=== PATIENT | female | born 1950 | race Caucasian/White ===

== ENCOUNTER 2023-12-04 13:04 | Emergency (ER) | payer MEDICARE, OTHER, SELFPAY ==
[2023-12-04 13:09] VITALS: BP 129/94
--- NOTE | 2023-12-04 13:40 | ED.GENMED ---
History of Present Illness
<Chelly Villalpando PA-C - Last Filed: 12/04/23 15:56>
General
Chief Complaint: Fall
Source: patient
Exam Limitations: none
Time Seen by Provider: 12/04/23 13:40
Nursing documentation reviewed up to this point in time: agreed with
Travel History
Have you had any contact with someone who has COVID-19?: No
Do you have any symptoms of coronavirus? Fever > 100 degrees, chills, cough, shortness of breath, sore throat, loss of taste or smell, muscle aches, or headache?: No
History of Present Illness
History of Present Illness:
73-year-old female with past medical history of hypertension presenting emergency department today with left buttocks pain following a fall. Patient states that this morning, she was walking in her house and slippers on a wood floor and slipped and
fell on her buttock. Patient states that she did not hit her head. Patient does not take any blood thinners. Patient denies neck pain, headache, dizziness, lightheadedness. Patient denies any lower extremity or upper extremity pain. Denies any
back pain. Denies any abdominal pain. Patient states that she is able to ambulate, however she states that is a bit difficult because of the pain. She is currently living at home alone because her is on a trip to [place] and she is
concerned about a fall occurring again.
Past History
<Chelly Villalpando PA-C - Last Filed: 12/04/23 15:56>
Past History
ED Past Medical History: HTN and Hypercholesterolemia
ED Past Surgical History: Orthopedic (R ankle screws and plate)
Social History
Tobacco: Non-smoker
Alcohol: Occasional
Personal:
Living: with family
Review of Systems
<Chelly Villalpando PA-C - Last Filed: 12/04/23 15:56>
Review of Systems
All Other Systems: ROS reviewed and negative except as documented in HPI and ROS
Phy Exam
<Chelly Villalpando PA-C - Last Filed: 12/04/23 15:56>
Physical Exam
Physical Exam:
Vitals: Vital signs are stable
General: Patient is well appearing, no acute distress
Skin: Warm dry, no rashes or lesions. No areas of ecchymosis.
Cardiac: Regular rate and rhythm, no murmurs. No tenderness tenderness to palpation of the posterior external chest wall.
Peripheral vascular: 2+ DP pulses bilaterally. No lower extremity swelling.
Pulm: Normal respiratory effort
Abdomen: No abdominal tenderness
Musculoskeletal: Patient has tenderness to palpation of the left buttocks, mild tenderness palpation of the left hip. Patient has no pain with full range of motion of the hip. Patient has no tenderness palpation of the coccyx. Sensation intact.
Neuro: CN II-XII intact. No focal neurologic deficits.
Course
<Chelly Villalpando PA-C - Last Filed: 12/04/23 15:56>
Orders/Labs/Results
Orders:
Orders
12/04/23 14:10
CR Hip - LT w/wo Pel 2-3 Vw* Urgent
Comment:
Reason For Exam: left hip pain following fall
Include a pelvis x-ray?: Yes
CR Sacrum/coccyx Min 2 View Urgent
Comment:
Reason For Exam: left buttock pain
Vital Signs
Initial and Last Documented VS:
Initial Vital Signs
Temp Pulse Resp BP Pulse Ox
97.7 F 78 18 129/94 98
12/04/23 13:09 12/04/23 13:09 12/04/23 13:09 12/04/23 13:09 12/04/23 13:09
Last Documented Vital Signs
Temp Pulse Resp BP Pulse Ox
97.7 F 78 18 129/94 98
12/04/23 13:09 12/04/23 13:09 12/04/23 13:09 12/04/23 13:09 12/04/23 13:09
<Wayne Ward DO - Last Filed: 12/04/23 14:48>
Orders/Labs/Results
Orders:
Orders
12/04/23 14:10
CR Hip - LT w/wo Pel 2-3 Vw* Urgent
Comment:
Reason For Exam: left hip pain following fall
Include a pelvis x-ray?: Yes
CR Sacrum/coccyx Min 2 View Urgent
Comment:
Reason For Exam: left buttock pain
Vital Signs
Initial and Last Documented VS:
Initial Vital Signs
Temp Pulse Resp BP Pulse Ox
97.7 F 78 18 129/94 98
12/04/23 13:09 12/04/23 13:09 12/04/23 13:09 12/04/23 13:09 12/04/23 13:09
Last Documented Vital Signs
Temp Pulse Resp BP Pulse Ox
97.7 F 78 18 129/94 98
12/04/23 13:09 12/04/23 13:09 12/04/23 13:09 12/04/23 13:09 12/04/23 13:09
<Chelly Villalpando PA-C - Last Filed: 12/04/23 15:56>
MDM/Problems Addressed
Differential Diagnosis Includes:
Differentials include sacral fracture, femoral fracture, coccyx fracture, pelvic fracture, musculoskeletal sprain/strain, soft tissue swelling
MDM/Problems Addressed:
Left buttocks pain
Chronic conditions affecting care: HTN
Acute Exacerbation and/or Progression of Chronic Illness: HTN
<CELESTINA Cortez Last Filed: 12/04/23 15:56>
*Radiology
Radiology exam reviewed: preliminary read by ED provider (No acute fracture or dislocation)
*Pulse Oximetry
Patient hypoxic: no
*Critical Care Note
Total Time (30-74mins, 75-104mins- exclusive of procedures): Not Applicable
Data Reviewed
Review of Other/Old Records Reveals: Records (Reviewed ER physician documentation from 10/30/2013) and Discharge Summary (Reviewed discharge summary from 11/02/2013)
Source: patient, records and family
Prescriptions/Medications Considered But Not Given:
Considered ibuprofen or Tylenol for pain however patient states that she is comfortable at this time.
<Chelly Villalpando PA-C - Last Filed: 12/04/23 15:56>
Patient Management
Escalation/DeEscalation of care consider admission/obs:
73-year-old female presenting emergency department today with left buttocks pain following slipping and falling on her buttocks. Patient states that she did not hit her head. Patient does not take any blood thinners. Here in the emergency
department, her x-rays reveal no evidence for acute pelvic or proximal femoral fracture. No evidence for sacrum or coccygeal fracture. Patient has had a lot of pain with walking and she is concerned she will fall again. I discussed with patient
importance of avoiding slippery socks or slippers on hard surfaces and discussed other follow-up precautions. Because is currently away, patient states that she feels more comfortable going home with a walker to use. We have ordered a
walker for patient. Patient stable for discharge.
ED Attending Note
<Chelly Villalpando PA-C - Last Filed: 12/04/23 15:56>
-
Portions of this chart may have been created with voice recognition software.� Occasional wrong word or��sound alike� substitutions may have occurred due to the inherent limitations of voice recognition software.
<Wayne Ward DO - Last Filed: 12/04/23 14:48>
ED Attending Note
Patient seen and examined by attending physician: Yes
I performed the substantive portion of visit, reviewed & personally made and approve the management plan that is documented in note by myself or BRENNA.: Yes
ED Attending Note:
Seen with PA examined independently slip and fall struck her left buttock cheek on the ground full range of motion of the hips, x-rays noted no obvious fracture
Discharge Plan
Departure
Patient Disposition: Home (Routine Discharge)
Date of Disposition: 12/04/23
Time of Disposition: 15:33
Patient with high blood pressure during this ER visit?: Yes
Condition: Good
Discharge Problem:
Fall
Instructions: Preventing falls in adults, BLOOD PRESSURE
Prescriptions:
No Action
triamterene-hydrochlorothiazid 37.5 MG/25 MG capsule
1 cap PO DAILY
Calcium With D
1,200 mg PO DAILY
Vitamin B Complex-100
1 tab PO DAILY
oxycodone 5 MG tablet
5 mg PO Q4HPRN PRN (Reason: MODERATE PAIN) Qty: 0 0RF
aspirin 325 MG tablet,delayed release (DR/EC)
325 mg PO DAILY Qty: 30 0RF
verapamil 240 MG tablet extended release
240 mg PO QPM
fosinopril 10 MG tablet
5 mg PO DAILY
sulfamethoxazole-trimethoprim 1 TABLET tablet
1 tab PO BID Qty: 10 0RF
Referrals:
Sameera Willson CRNP [Family Provider] -
Activity Restrictions/Additional Instructions:
Your x-rays today were negative for any acute fracture or dislocation.
As discussed, you can use ibuprofen and acetaminophen to help with your pain. You can also use ice and/or heat as needed.
Please follow-up with your primary care provider.
Please return to emergency department should you experience acute worsening of your symptoms, fevers or chills, chest pain or shortness of breath, dizziness, lightheadedness, or other concerning signs or symptoms
Interventions
Interventions:
*General Assessment Last Done: 12/04/23 13:09
*ED COVID-19 Vaccine History Last Done: 12/04/23 13:09
ED-Musculoskeletal Assessment Last Done: 12/04/23 13:31
ED- Neurological Assessment Last Done: 12/04/23 13:31
ED-Skin Assessment Last Done: 12/04/23 13:31
Discharge Date and Time
Print Language: MALTESE
== END 2023-12-04 16:09 | disposition home or self-care (01) ==
LOC: EMR 13:04
PROVIDERS: EMERGENCY PHYSICIAN Emergency Medicine; FAMILY PHYSICIAN Nurse Practitioner
DX: Z04.89 Encounter for examination and observation for other specified reasons (principal); Y92.009 Unspecified place in unspecified non-institutional (private) residence as the place of occurrence of the external cause; Y93.01 Activity, walking, marching and hiking; Z60.2 Problems related to living alone; I10 Essential (primary) hypertension; E78.00 Pure hypercholesterolemia, unspecified
CPT/HCPCS: 99283; 72220; 73502

== ENCOUNTER → 2023-12-30 15:45 | Outpatient (REF) | payer MEDICARE, OTHER, SELFPAY | LOC: PAVMRI 15:45 | PROVIDERS: ATTENDING PHYSICIAN Nurse Practitioner | DX: M54.41 Lumbago with sciatica, right side (principal); M54.42 Lumbago with sciatica, left side; M53.3 Sacrococcygeal disorders, not elsewhere classified | CPT/HCPCS: 72148 ==

== ENCOUNTER → 2024-01-12 12:16 | Outpatient (REF) | payer MEDICARE, OTHER, SELFPAY | LOC: MRI 3T 12:16 | PROVIDERS: ATTENDING PHYSICIAN Internal Medicine Gastroenterology; FAMILY PHYSICIAN Nurse Practitioner; REFERRING PHYSICIAN Internal Medicine Cardiovascular Disease | DX: K86.2 Cyst of pancreas (principal) | CPT/HCPCS: 74183 ==

== ENCOUNTER 2024-01-20 06:17 | Day surgery (SDC) | payer MEDICARE, OTHER, SELFPAY ==
[2024-01-20 12:35] VITALS: BMI 21.1
[2024-01-20 12:45] VITALS: BP 165/86
[2024-01-20 13:12] VITALS: BMI 21.1
[2024-01-20 16:21] VITALS: BP 155/83
[2024-01-20 16:30] VITALS: BP 125/110
[2024-01-20 16:45] VITALS: BP 145/78
== END 2024-01-20 17:00 | disposition home or self-care (01) ==
LOC: GI 06:17
PROVIDERS: ATTENDING PHYSICIAN Internal Medicine Gastroenterology; FAMILY PHYSICIAN Nurse Practitioner
DX: K86.2 Cyst of pancreas (principal); D13.6 Benign neoplasm of pancreas
CPT/HCPCS: 43238; 88173

== ENCOUNTER → 2024-01-31 12:40 | Outpatient (REF) | payer MEDICARE, OTHER, SELFPAY | LOC: HWWDC 12:40 | PROVIDERS: ATTENDING PHYSICIAN Nurse Practitioner | DX: Z12.31 Encounter for screening mammogram for malignant neoplasm of breast (principal); E04.2 Nontoxic multinodular goiter | CPT/HCPCS: 76536; 77063; 77067 ==

== ENCOUNTER → 2024-05-25 14:34 | Outpatient (REF) | payer MEDICARE, OTHER, SELFPAY | LOC: HWRAD 14:34 | PROVIDERS: ATTENDING PHYSICIAN Nurse Practitioner | DX: R93.89 Abnormal findings on diagnostic imaging of other specified body structures (principal) | CPT/HCPCS: 71046 ==

== ENCOUNTER → 2025-02-20 08:21 | Outpatient (REF) | payer MEDICARE, OTHER, SELFPAY | LOC: HWWDC 08:21 | DX: E04.2 Nontoxic multinodular goiter (principal); N83.209 Unspecified ovarian cyst, unspecified side; Z12.31 Encounter for screening mammogram for malignant neoplasm of breast; M81.0 Age-related osteoporosis without current pathological fracture | CPT/HCPCS: 76536; 76830; 76856; 77063; 77067; 77080 ==

== ENCOUNTER 2025-03-26 05:52 | Inpatient (IN) | payer MEDICARE, OTHER, SELFPAY ==
--- NOTE | 2025-03-01 14:31 | CM ---
CM reviewed medical records. CM spoke with patient via live telephone. Patient confirmed demographics. Patient lives independently with . Patient has a first floor set up. Patient has had a remote history of VN, but is currently not on
service. Patient does not have a history of SNF. Patient has a walker.
Patient is active with her PCP. Patient has medication coverage.
Patient has an appointment set up for her outpatient PT at [facility].
CM encouraged patient to read her education pack from [facility].
PLAN: BO, home, outpatient PT.
[2025-03-06 11:51] LABS: Hematocrit 39.5 % (37.0-47.0); Hemoglobin 13.5 g/dL (12.0-16.0); Mean Corp Hgb Conc. 34.2 g/dL (33.0-37.0); Mean Corpuscular Volume 95.4 fL (81.0-99.0); Platelet Count 308 10^3/uL (130-400); Red Cell Dist. Width 14.3 % (11.5-14.5)
[2025-03-06 12:40] LABS: ALT (SGPT) 18 U/L (0-35); AST (SGOT) 25 U/L (14-36); Albumin 4.7 g/dl (3.5-5.0); Alkaline Phosphatase 72 U/L (38-126); Blood Urea Nitrogen 16 mg/dl (7-17); Calcium 9.9 mg/dl (8.4-10.2); Carbon Dioxide 29 mmol/L (22-30); Chloride 98 mmol/L (98-107); Glucose 111 mg/dl (70-99); Potassium 4.1 mmol/L (3.5-5.1); Sodium 135 mmol/L (135-145); Total Protein 7.2 g/dl (6.3-8.2); eGFR > 60.00
[2025-03-06 13:30] LABS: Glycohemoglobin (HgbA1c) 5.7 % (4.0-5.6)
[2025-03-06 14:18] VITALS: BMI 20.7
[2025-03-14 08:12] VITALS: BMI 20.7
[2025-03-26] VITALS (11 sets, daily range): BP systolic 111–166; BP diastolic 63–92; PULSE 73–78; O2SAT 95–99; BMI 20.7
[2025-03-26] MEDS: BACTROBAN NASAL 1 GRAM NASAL (06:31)
[2025-03-26] MEDS: TYLENOL 650 MG PO ×4 (06:32→19:40)
[2025-03-26] MEDS: MOBIC 15 MG PO (06:32)
[2025-03-26] MEDS: NORMOSOL-R/PLASMALYTE-A 1000 IV ×2 (06:33→10:25)
[2025-03-26] MEDS: MORPHINE SULFATE 2 MG IV ×2 (09:21→09:43)
[2025-03-26] MEDS: ROXICODONE 5 MG PO (09:30)
--- NOTE | 2025-03-26 10:18 | PTCARENOTE ---
Patient admitted from PACU post total right knee arthroplasty.The patient is alert and oriented.She rates her pain at a 2 out of 10.Vital signs are stable.The right knee dressing is intact with scant drainage.The patient is in her bed with the call
santana in place.
[2025-03-26] MEDS: ZESTRIL PO (12:12)
[2025-03-26] MEDS: TYLENOL PO (12:14)
[2025-03-26] MEDS: PROTONIX 40 MG PO (12:16)
[2025-03-26] MEDS: FLORASTOR 250 MG PO ×2 (12:16→19:40)
[2025-03-26] MEDS: ZOFRAN 4 MG IV (13:01)
--- NOTE | 2025-03-26 13:54 | W.PN.ORTHO ---
Today's Communication / Plan
-
D/c when clinically stable.
Assessment
.
Distal Motor Intact: Yes
Dressing:
Scant incisional bleeding noted.
Assessment:
R knee OA s/p R TKA w/ Dr Natarajan 03/26/25
- EARLY DISCHARGE
- ? ADR to Toradol after previous partial pancreatectomy/splenectomy. Will order Decadron, Benadryl prn out of an abundance of caution. May continue Meloxicam daily since tolerating pre-op dose
DVT prophylaxis - ASA, b/l venous foot pumps
Post-op nausea - Zofran/Compazine prn
- Add daily Protonix
- Encourage pain meds with food
- Monitor
HTN - + parameters - monitor BP
GERD and h/o H. Pylori - add PPI
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
Chronic constipation - add daily Miralax with standard bowel regimen of Colace and Senna
Vertigo with previous Meclizine use - order Meclizine prn
Chronic motion sickness and balance difficulties - on fall precautions
- Scopolamine patch offered pre-op but refused
HLD
Diverticulosis
Lumbosacral degenerative disc disease with stenosis
Multinodular goiter
Osteoporosis
Hearing impairment bilaterally
Prediabetes, A1c 5.7
Plan
.
Surgery / Date: R TKA w/ Dr Natarajan 03/26/25
DVT Prophylaxis: Aspirin
Activity:
Out of bed.
PT/OT
Discharge Plan: Home w/ Outpatient PT
Subjective
.
.:
Patient examined resting in her chair.
R knee pain currently 3/10 but tolerable.
Nausea reported after OT this afternoon.
Vital Signs and Labs
.
Vital Signs and Labs:
Lab Results
03/06/25 10:35
03/06/25 10:35
Temp Pulse Resp BP Pulse Ox
97.4 F 67 16 132/73 99
03/26/25 11:15 03/26/25 10:13 03/26/25 10:13 03/26/25 12:12 03/26/25 10:15
Physical Exam
-
HEENT: No pallor, cyanosis, or jaundice. Throat clear.
NECK: Supple. No JVD.
RESPIRATORY: Lungs clear to auscultation.
CVS: S1, S2 normal. RRR.�
ABDOMEN: Soft, non-tender. No distension.
EXTREMITIES: Strength equal, no calf pain with palpation/dorsiflexion. Calves soft.
DRAPERY MAKER: AOx3. No focal deficits. facility administrator grossly intact
[2025-03-26] MEDS: ANCEF 5 IV (16:46)
[2025-03-26] MEDS: ASPIRIN 325 MG PO (17:50)
[2025-03-26] MEDS: DECADRON 4 MG PO (19:39)
[2025-03-26] MEDS: COLACE 100 MG PO (19:39)
[2025-03-26] MEDS: BACTROBAN 2% OINTMENT 1 APPLIC NASAL (19:39)
[2025-03-26] MEDS: SENOKOT 17.2 MG PO (19:40)
[2025-03-26] MEDS: CLARITIN 10 MG PO (21:56)
[2025-03-26] MEDS: PRAVACHOL 10 MG PO (21:56)
--- NOTE | 2025-03-26 23:15 | PTCARENOTE ---
Received pt from previous RN awake in bed able to make needs known, ambulated pt with bathroom with rolling walker. Pt did well, reports pain 2/10 ice provided and pain medication due @ 0000.
[2025-03-27] MEDS: ANCEF 5 IV (00:27)
[2025-03-27] MEDS: TYLENOL 650 MG PO ×3 (00:28→09:09)
[2025-03-27 03:22] VITALS: BP 123/73
[2025-03-27] MEDS: ROXICODONE 5 MG PO (05:54)
[2025-03-27 07:50] VITALS: BP 146/79
[2025-03-27] MEDS: DECADRON 4 MG PO (09:08)
[2025-03-27] MEDS: ZESTRIL 30 MG PO (09:09)
[2025-03-27] MEDS: MOBIC 15 MG PO (09:09)
[2025-03-27] MEDS: ASPIRIN 325 MG PO (09:09)
[2025-03-27] MEDS: COLACE 100 MG PO (09:10)
[2025-03-27] MEDS: SENOKOT 17.2 MG PO (09:10)
[2025-03-27] MEDS: BACTROBAN 2% OINTMENT 1 APPLIC NASAL (09:11)
[2025-03-27] MEDS: PROTONIX 40 MG PO (09:12)
[2025-03-27] MEDS: FLORASTOR 250 MG PO (09:12)
--- NOTE | 2025-03-27 09:23 | CM ---
Cm reviewed medical records. Patient confirmed her outpatient PT appointments.
IMM given.
PLAN: home with outpatient PT.
--- NOTE | 2025-03-27 09:42 | W.PN.ORTHO ---
Today's Communication / Plan
-
D/c today since clinically stable, did well w/ PT and OT.
Assessment
.
Distal Motor Intact: Yes
Dressing:
Scant areas of old incisional bleeding noted - relatively unchanged from yesterday.
Assessment:
R knee OA s/p R TKA w/ Dr Natarajan 03/26/25
- EARLY DISCHARGE
- ? ADR to Toradol after previous partial pancreatectomy/splenectomy. Will order Decadron, Benadryl prn out of an abundance of caution. May continue Meloxicam daily since tolerating pre-op dose
DVT prophylaxis - ASA, b/l venous foot pumps
Post-op nausea - Zofran/Compazine prn
- Add daily Protonix
- Encourage pain meds with food
- Nausea improved w/ measures above by POD 1
HTN - + parameters - BPs overall stable
GERD and h/o H. Pylori - add PPI
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
Chronic constipation - added daily Miralax with standard bowel regimen of Colace and Senna
Vertigo with previous Meclizine use - order Meclizine prn (not needed thankfully)
Chronic motion sickness and balance difficulties - on fall precautions
- Scopolamine patch offered pre-op but refused
HLD
Diverticulosis
Lumbosacral degenerative disc disease with stenosis
Multinodular goiter
Osteoporosis
Hearing impairment bilaterally
Prediabetes, A1c 5.7
Plan
.
Surgery / Date: R TKA w/ Dr Natarajan 03/26/25
DVT Prophylaxis: Aspirin
Activity:
Out of bed.
PT/OT
Discharge Plan: Home w/ Outpatient PT
Subjective
.
.:
Patient resting comfortably in her chair.
R knee pain overall well tolerated w/ minimal pain meds.
Denies any new complaints. Nausea from yesterday improved.
Eager for potential d/c today.
Vital Signs and Labs
.
Vital Signs and Labs:
Lab Results
03/06/25 10:35
03/06/25 10:35
Temp Pulse Resp BP Pulse Ox
98.4 F 85 18 146/79 95
03/27/25 07:50 03/27/25 09:11 03/27/25 07:50 03/27/25 09:11 03/27/25 07:50
Non-invasive Hgb result: 10.2
Physical Exam
-
HEENT: No pallor, cyanosis, or jaundice. Throat clear.
NECK: Supple. No JVD.
RESPIRATORY: Lungs clear to auscultation.
CVS: S1, S2 normal. RRR.�
ABDOMEN: Soft, non-tender. No distension.
EXTREMITIES: Strength equal, no calf pain with palpation/dorsiflexion. Calves soft.
PAIN COORDINATOR: AOx3. No focal deficits. field operations manager grossly intact
--- NOTE | 2025-03-27 09:54 | W.DS.TRANS ---
DC Summary - Soap Chipper
-
Discharge Instructions:
Sleep Apnea Risk Low
Discharge Diagnosis/Procedures R knee OA s/p R TKA w/ Dr Natarajan 03/26/25
Diet Regular
Additional Diets Adequate hydration, minimize opioids, and wear
TEDs stockings to prevent low blood pressure/
dizziness.
Activity As tolerated,With Walker
Driving Restrictions Not until seen by your Dr
Bathing Restrictions OK to Shower
Other Services PT
Wound Care Dressing to be removed 1 week post-surgery.
Christiane to be removed at 2 week follow-up with
surgeon's office.
Instructions:
Stand-Alone Forms: Total Hip/Knee Replacement D/C
Changes to Home Medications: Yes
Discharge Medications:
DC Medications w/original date entered in QuickProNotes
pravastatin 10 mg tablet 10 mg PO HS High Cholesterol 01/20/24
Probiotic 1 cap PO BID Supplement 03/05/25
calcium 600 mg (as carbonate)-vitamin D3 10 mcg (400 unit) tablet (Calcium 600 + D(3)) 2 tab PO DAILY Supplement 03/05/25
mupirocin 2 % topical ointment 1 applic intranasal BID #1 tube 03/06/25
fexofenadine 180 mg tablet (Liset Allergy) 180 mg PO HS Allergies 03/26/25
acetaminophen 500 mg tablet (Tylenol Extra Strength) 1,000 mg (2 x 500 mg) PO Q6H #60 tabs 03/27/25
aspirin 325 mg tablet 325 mg PO DAILY #30 tabs 03/27/25
cefadroxil 500 mg capsule 500 mg PO BID #14 caps 03/27/25
dexamethasone 4 mg tablet 4 mg PO BID Anti-inflammatory #5 tabs 03/27/25
docusate sodium 100 mg capsule 100 mg PO BID #30 caps 03/27/25
fosinopril 20 mg tablet 30 mg (1.5 x 20 mg) PO DAILY Blood Pressure #1 tab 03/27/25
meloxicam 15 mg tablet 15 mg PO DAILY #14 tabs 03/27/25
ondansetron HCl 4 mg tablet 4 mg PO Q6H PRN nausea and vomiting #30 tabs 03/27/25
oxycodone 5 mg tablet 5 - 10 mg (1 - 2 x 5 mg) PO Q6H PRN moderate-severe pain #30 tabs 03/27/25
pantoprazole 40 mg tablet,delayed release 40 mg PO DAILY #30 tabs 03/27/25
polyethylene glycol 3350 17 gram oral powder packet 17 g PO DAILY #30 ea 03/27/25
sennosides 8.6 mg tablet (Danielle-minor) 17.2 mg (2 x 8.6 mg) PO BID #30 tabs 03/27/25
triamterene 37.5 mg-hydrochlorothiazide 25 mg capsule 1 cap PO DAILY Fluid Retention/Swelling #1 cap 03/27/25
verapamil 240 mg tablet,extended release 240 mg PO HS Heart Disease/Condition #1 tab 03/27/25
Home Medication Changes
acetaminophen 500 mg tablet (Tylenol Extra Strength) 1,000 mg (2 x 500 mg) PO Q6H #60 tabs 03/27/25
aspirin 325 mg tablet 325 mg PO DAILY #30 tabs 03/27/25
cefadroxil 500 mg capsule 500 mg PO BID #14 caps 03/27/25
dexamethasone 4 mg tablet 4 mg PO BID Anti-inflammatory #5 tabs 03/27/25
docusate sodium 100 mg capsule 100 mg PO BID #30 caps 03/27/25
meloxicam 15 mg tablet 15 mg PO DAILY #14 tabs 03/27/25
ondansetron HCl 4 mg tablet 4 mg PO Q6H PRN nausea and vomiting #30 tabs 03/27/25
oxycodone 5 mg tablet 5 - 10 mg (1 - 2 x 5 mg) PO Q6H PRN moderate-severe pain #30 tabs 03/27/25
pantoprazole 40 mg tablet,delayed release 40 mg PO DAILY #30 tabs 03/27/25
polyethylene glycol 3350 17 gram oral powder packet 17 g PO DAILY #30 ea 03/27/25
sennosides 8.6 mg tablet (Danielle-minor) 17.2 mg (2 x 8.6 mg) PO BID #30 tabs 03/27/25
Pending Results: No
[2025-03-27 10:45] VITALS: BP 139/80
== END 2025-03-27 11:50 | disposition home or self-care (01) | DRG 470 ==
LOC: 2 SOUTH 05:52
PROVIDERS: ADMITTING PHYSICIAN Specialist; REFERRING PHYSICIAN Internal Medicine Cardiovascular Disease
PROC: 0SRC0J9 Replacement of Right Knee Joint with Synthetic Substitute, Cemented, Open Approach (ICD-10-PCS; 2025-03-26)
DX: M17.11 Unilateral primary osteoarthritis, right knee (principal); I10 Essential (primary) hypertension; E78.5 Hyperlipidemia, unspecified; K21.9 Gastro-esophageal reflux disease without esophagitis; R11.0 Nausea; K59.09 Other constipation; M81.0 Age-related osteoporosis without current pathological fracture; H91.93 Unspecified hearing loss, bilateral; R73.03 Prediabetes; M48.00 Spinal stenosis, site unspecified; M51.379 Other intervertebral disc degeneration, lumbosacral region without mention of lumbar back pain or lower extremity pain; R42 Dizziness and giddiness; E04.2 Nontoxic multinodular goiter; Z90.411 Acquired partial absence of pancreas; Z90.81 Acquired absence of spleen; Z86.19 Personal history of other infectious and parasitic diseases
CPT/HCPCS: 36415; 73560; 80053; 83036; 85027; 87070; 97116; 97162; 97166; 97535; C1713; C1776

== ENCOUNTER 2025-04-11 20:50 | Inpatient (IN) | payer MEDICARE, OTHER, SELFPAY ==
[2025-04-11 16:27] VITALS: BP 156/86
[2025-04-11 16:51] VITALS: BP 160/85
[2025-04-11 16:52] VITALS: BMI 22.2
[2025-04-11 17:30] LABS: Hematocrit 34.1 % (37.0-47.0); Hemoglobin 11.6 g/dL (12.0-16.0); Mean Corp Hgb Conc. 34.0 g/dL (33.0-37.0); Mean Corpuscular Volume 96.1 fL (81.0-99.0); Nucleated Red Blood Cells % 0 %; Platelet Count 375 10^3/uL (130-400); Red Cell Dist. Width 16.6 % (11.5-14.5)
[2025-04-11 17:44] LABS: ALT (SGPT) 18 U/L (0-35); AST (SGOT) 29 U/L (14-36); Albumin 4.3 g/dl (3.5-5.0); Alkaline Phosphatase 91 U/L (38-126); Blood Urea Nitrogen 20 mg/dl (7-17); Calcium 9.3 mg/dl (8.4-10.2); Carbon Dioxide 30 mmol/L (22-30); Chloride 91 mmol/L (98-107); Estimated Creatinine Clearance 47 ml/min; Glucose 90 mg/dl (70-99); Potassium 4.5 mmol/L (3.5-5.1); Sodium 127 mmol/L (135-145); Total Protein 6.6 g/dl (6.3-8.2); eGFR > 60.00
[2025-04-11] MEDS: BENADRYL 25 MG IV (19:12)
--- NOTE | 2025-04-11 19:13 | ED.GENMED ---
History of Present Illness
General
Chief Complaint: Skin Problem
Source: patient
Exam Limitations: none
Time Seen by Provider: 04/11/25 17:05
History of Present Illness
History of Present Illness:
74-year-old female presents with worsening redness swelling and pain to the right leg. She had a right knee replaced just over 2 weeks ago. Redness started last week. She is thought to have dermatitis. She was started on Keflex 500 mg 4 times a
day. She was then seen by her family doctor this week was started on doxycycline. She notes no improvement. She denies fevers chest pain or shortness of breath. She is on a full aspirin for DVT prophylaxis postoperatively. She has a history of
prediabetes. No other complaints
Past History
Past History
ED Past Medical History: HTN and Hypercholesterolemia
ED Past Surgical History: Orthopedic (R ankle screws and plate)
Social History
Tobacco: Non-smoker
Alcohol: Occasional
Personal:
Living: with family
Phy Exam
Physical Exam
Physical Exam:
General: Well appearing female NAD
HEENT: NC/AT
Heart: RRR, no murmurs
Lungs: CTA
Ext: erythema to right medial and lateral thigh with warmth
Vascular: 2+ DP pulse right foot
Course
Orders/Labs/Results
Orders:
Orders
04/11/25 17:00
Complete Blood Count/With Diff Urgent
Comprehensive Metabolic Panel Urgent
Serum Osmolality Urgent
Comment: ADD ON
04/11/25 17:17
Venous Doppler Lwr Ext Rt [US Periph Venous LOWER Ext RT] Urgent
Comment:
Reason For Exam: swelling
04/11/25 19:03
CeFAZolin 1 GRAM [Ancef] 1 gram in 5 ml IV NOW
Diphenhydramine [Benadryl] 25 mg IV NOW STA
04/11/25 19:05
Add On- LAB Urgent
Tests Added?: serum osm
Osmolality, Random Urine Urgent
Date Specimen was Collected: 04/11/25
Time Specimen was Collected: 19:07
Urinalysis Reflex To Culture Urgent
Date Specimen was Collected: 04/11/25
Time Specimen was Collected: 19:07
Urine Sodium Urgent
Date Specimen was Collected: 04/11/25
Time Specimen was Collected: 19:07
Abnormal Lab Results
04/11/25
17:00
RBC 3.55 L 10^6/uL
(4.20-5.40)
Hgb 11.6 L g/dL
(12.0-16.0)
Hct 34.1 L %
(37.0-47.0)
MCH 32.7 H pg
(27.0-31.0)
RDW 16.6 H %
(11.5-14.5)
Abs Immat Gran (auto) 0.1 H 10^3/uL
(0-0.05)
Absolute Monos (auto) 0.9 H 10^3/uL
(0.1-0.6)
Absolute Eos (auto) 0.8 H 10^3/uL
(0-0.7)
Immature Gran % 0.8 H %
(0-0.5)
Monocytes % 10.7 H %
(1.7-9.3)
Eosinophils % 9.5 H %
(0-6)
Sodium 127 L mmol/L
(135-145)
Chloride 91 L mmol/L
(98-107)
BUN 20 H mg/dl
(7-17)
04/11/25 17:00
04/11/25 17:00
Vital Signs
Initial and Last Documented VS:
Initial Vital Signs
Temp Pulse Resp BP Pulse Ox
97.8 F 88 16 156/86 99
04/11/25 16:27 04/11/25 16:27 04/11/25 16:27 04/11/25 16:27 04/11/25 16:27
Last Documented Vital Signs
Temp Pulse Resp BP Pulse Ox
97.8 F 88 16 160/85 99
04/11/25 16:27 04/11/25 16:27 04/11/25 16:27 04/11/25 16:51 04/11/25 16:52
MDM/Problems Addressed
Differential Diagnosis Includes:
Erythema right leg. Consider cellulitis versus dermatitis versus inflammatory response
Labs reviewed white count normal sodium is 127. Serum osmolality, urine osmolality and urine sodium was added.
Concern for possible DVT, ultrasound was negative for DVT. Will cover for cellulitis not responding to oral antibiotics. Will admit to hospital.
*Pulse Oximetry
SaO2: 99
Oxygen Mode of Delivery: Room air
Patient hypoxic: no
*Critical Care Note
Total Time (30-74mins, 75-104mins- exclusive of procedures): Not Applicable
ED Attending Note
-
Portions of this chart may have been created with voice recognition software.� Occasional wrong word or��sound alike� substitutions may have occurred due to the inherent limitations of voice recognition software.
Discharge Plan
Departure
Patient Disposition: Admit
Date of Disposition: 04/11/25
Time of Disposition: 19:17
Presentation/result/management discussed w/ accepting MD/DO: Hospitalist
Discharge Problem:
Cellulitis
Prescriptions:
No Action
pravastatin 10 mg Tablet
10 mg PO HS
calcium carbonate-vitamin D3 [Calcium 600 + D(3)] 600 mg-10 mcg (400 unit) Tablet
2 tab PO DAILY
Probiotic
1 cap PO BID
mupirocin 2 % ointment
1 applic intranasal BID Qty: 1 0RF
Patient Comments:
started treatment on wednesday am and completed BID, last took at home 03/25/25 in pm
fexofenadine [Liset Allergy] 180 mg Tablet
180 mg PO HS
aspirin 325 mg Tablet
325 mg PO DAILY Qty: 30 0RF
Rx Instructions:
Take daily x4 weeks for blood clot prevention
dexamethasone 4 mg Tablet
4 mg PO BID Qty: 5 0RF
Rx Instructions:
Restart night of discharge and continue twice a day until finished.
Take with food.
docusate sodium 100 mg Capsule
100 mg PO BID Qty: 30 0RF
polyethylene glycol 3350 17 gram Powder In Packet
17 g PO DAILY Qty: 30 0RF
meloxicam 15 mg Tablet
15 mg PO DAILY Qty: 14 0RF
Rx Instructions:
Take with food.
DO NOT take within 2 hours of Aspirin.
pantoprazole 40 mg Tablet,Delayed Release (Dr/Ec)
40 mg PO DAILY Qty: 30 0RF
Rx Instructions:
Take daily while on post-surgical pain meds to reduce GI upset.
sennosides [Danielle-minor] 8.6 mg Tablet
17.2 mg PO BID Qty: 30 0RF
ondansetron HCl 4 mg tablet
4 mg PO Q6H PRN (Reason: nausea and vomiting) Qty: 30 0RF
oxycodone 5 mg tablet
5 - 10 mg PO Q6H PRN (Reason: moderate-severe pain) Qty: 30 0RF
Rx Instructions:
1 tab for moderate pain, 2 if severe.
Dx total joint.
cefadroxil 500 mg capsule
500 mg PO BID Qty: 14 0RF
Rx Instructions:
Start night of discharge and continue twice a day until finished.
Take with probiotic.
acetaminophen [Tylenol Extra Strength] 500 mg tablet
1,000 mg PO Q6H Qty: 60 0RF
Rx Instructions:
DO NOT exceed >4000 mg daily.
fosinopril 20 mg tablet
30 mg PO DAILY Qty: 1 0RF
Rx Instructions:
HOLD IF systolic blood pressure <130 while on post-surgical narcotics.
triamterene-hydrochlorothiazid 37.5 MG/25 MG capsule
1 cap PO DAILY Qty: 1 0RF
Rx Instructions:
HOLD IF systolic blood pressure <130 while on post-surgical narcotics.
verapamil 240 MG tablet extended release
240 mg PO HS Qty: 1 0RF
Rx Instructions:
HOLD IF systolic blood pressure <130 while on post-surgical narcotics.
Referrals:
Navin King CRNP [Family Provider]
Interventions
Interventions:
*Risk Screen - Suicide Last Done: 04/11/25 16:16
*General Assessment Last Done: 04/11/25 16:53
*Neglect/Abuse Screening Last Done: 04/11/25 16:16
*ED- Fall Risk Assessment Last Done: 04/11/25 16:53
*ED COVID-19 Vaccine History Last Done: 04/11/25 16:53
ED-Skin Assessment Last Done: 04/11/25 16:53
Discharge Date and Time
Print Language: BENINESE
[2025-04-11 19:43] LABS: Urine Character Clear (Clear)
[2025-04-11] MEDS: ANCEF 5 IV (19:53)
--- NOTE | 2025-04-11 19:57 | HPS.HSE ---
Family Physician
-
Family Physician: ADAM Hernandez
Chief Complaint
-
R Thigh Redness / Itching
History of Present Illness
Patient is a 74y F with PMH significant for hypertension, GERD and DJD who presents to ED complaining of itching, redness and pain in the RLE s/p recent TKA. Patient underwent R TKA here on 03/26. She states that she was doing well post-op for
about 5-7 days. When she removed the occlusive dressing at that time, she noted significant redness and itching in the R thigh / around the knee. She reports itching > pain. No fevers / chills but feels weak and 'washed out'. She was seen by
Ortho and started on Keflex without improvement in her symptoms. Note that she was on cefadroxil for 7 days post-op. She was seen by her PCP on Wednesday and doxycycline was added to her regimen. Her symptoms have continued to persist / progress and
she presented to the ED this evening for further evaluation.
Patient had post-op cellulitis after R ankle ORIF in 2013. This was successfully treated with Vanco then PO Bactrim (though she now reports an allergy to Bactrim).
Patient reports rashes / redness / itching after surgeries / incisions and even needlesticks / blood draws. She was seen by an [facility] Nurse and formal testing for latex and adhesive allergies was reportedly unremarkable.
Medical History
Past Medical History
Past Medical History: Reports Other
Additional Past Medical History:
Hypertension
Pancreatic Mass / Cyst
Chronic Vertigo / BPPV
Osteoporosis
DJD
GERD
Past Surgical History: Reports Other
Additional Past Surgical History:
R TKA (03/26/25)
Right Ankle ORIF with Retained Hardware
Partial Pancreatectomy / Splenectomy
Bladder Sling
Cystocele Repair
Social History
Tobacco: Non-smoker
Alcohol: None
Drug: None
Family History
Family History: Not pertinent
Allergies / Home Medications
Allergies reflects when Allergies were last updated in [employer].
Home Medications with original date entered in [employer]
Allergy/Medication List:
Allergies
Allergy/AdvReac Type Severity Reaction Status Date / Time
hydromorphone HCl (From Allergy Nausea / Verified 04/11/25 16:19
Dilaudid) Vomiting;
Headache
ketorolac (From Toradol) Allergy Hives Verified 04/11/25 16:19
levofloxacin (From Levaquin) Allergy JOINT PAIN Verified 04/11/25 16:19
pneumococcal vaccine (From Allergy Pharmacy Verified 04/11/25 16:19
Pneumovax-23) to Review
sulfamethoxazole (From Allergy Unknown Verified 04/11/25 16:19
Bactrim)
trimethoprim (From Bactrim) Allergy Unknown Verified 04/11/25 16:19
Home Medications
pravastatin 10 mg tablet 10 mg PO HS High Cholesterol 01/20/24
calcium 600 mg (as carbonate)-vitamin D3 10 mcg (400 unit) tablet (Calcium 600 + D(3)) 2 tab PO DAILY Supplement 03/05/25
aspirin 325 mg tablet 325 mg PO DAILY #30 tabs 03/27/25
fosinopril 20 mg tablet 30 mg (1.5 x 20 mg) PO DAILY Blood Pressure #1 tab 03/27/25
triamterene 37.5 mg-hydrochlorothiazide 25 mg capsule 1 cap PO DAILY Fluid Retention/Swelling #1 cap 03/27/25
verapamil 240 mg tablet,extended release 240 mg PO HS Heart Disease/Condition #1 tab 03/27/25
Lactobac no.2-Bifidobac no.1-S. thermo 112.5 billion cell capsule (Visbiome) 1 cap PO BID 04/11/25
acetaminophen 500 mg tablet (Tylenol Extra Strength) 1,000 mg PO BID mild pain 04/11/25
cephalexin 500 mg capsule 500 mg PO QID 04/11/25
doxycycline hyclate 100 mg tablet 100 mg PO BID 04/11/25
Review of Systems
-
History Source: Patient
A 12 point ROS was completed and negative except as noted: Yes
Constitutional: Reports Fatigue; Denies Fever or Chills
Respiratory: Denies Cough or Trouble Breathing
Cardiac: Denies Chest Pain or Palpitations
Abdomen/GI: Denies Abdominal Pain, Nausea, Vomiting or Diarrhea
: Denies Dysuria or Flank Pain
Musculoskeletal: Reports Edema; Denies Joint Pain
Skin: Reports Itching, Rash and Other (Redness)
Neurological: Denies Dizzy or Headache
Psych: Denies Depression or Anxiety
Physical Exam
Vital Signs
Vital Signs
Temp Pulse Resp BP Pulse Ox
97.8 F 88 16 160/85 99
04/11/25 16:27 04/11/25 16:27 04/11/25 16:27 04/11/25 16:51 04/11/25 19:18
Physical Exam
General: Other (74y F in no acute distress.)
HEENT: Moist mucous membranes and PERRLA
Respiratory: Clear; No Wheezes, Rales or Rhonchi
Cardiac: S1/S2 and Regular Rhythm; No Murmur
GI: Soft, Non Tender, Non Distended and Normal Bowel Sounds
Musculoskeletal: Other (R knee without significant surrounding redness. ROM intact. Incision with steri-strips in place. No bleeding / discharge.)
Skin: Other (Marked erythema / induration of the R thigh - medial > lateral - extending into the groin. Few areas of patchy erythema in the lower leg.)
Neuro: AO x 3
Laboratory Results
-
04/11/25 17:00
04/11/25 17:00
Laboratory Results
Total Bilirubin 0.9 mg/dl (0.2-1.3) 04/11/25 17:00
AST 29 U/L (14-36) 04/11/25 17:00
ALT 18 U/L (0-35) 04/11/25 17:00
Alkaline Phosphatase 91 U/L (38-126) 04/11/25 17:00
Impression/Plan
-
A/P: Patient is a 74y F with PMH significant for hypertension and DJD who presents to ED complaining of redness, itching and pain of the RLE x 7-10 days.
RLE Cellulitis
- Admit for further evaluation and treatment.
- Exam findings seem most c/w cellulitis. Area around knee actually appears spared and ROM intact, no surgical site discharge / etc.
- Failure to improve on outpatient cephalexin and doxycycline.
- IV Vanco and Ancef for now.
- Follow for clinical improvement.
s/p R TKA
- Appears to be healing well. Good ROM without significant joint pain, etc.
- US done today shows complex collection in the anterior thigh - likely post-op hematoma.
- Could consider aspiration / culture if cellulitis fails to improve.
- Continue usual post-op care including PT, etc.
- Continue full-dose ASA for DVT prophylaxis.
Hyponatremia
- Na = 127 compared to recent value of 135.
- Likely combination of thiazide diuretic and post-op / pain / etc.
- Fluid restriction. Hold Dyazide.
- Follow for improvement.
Benign Hypertension
- Stable. Hold Dyazide acutely given hyponatremia.
- Continue other home regimen with holding parameters.
DVT Prophylaxis: Full dose ASA per Ortho protocols.
Code Status: Full
[2025-04-11 20:00] VITALS: BP 171/85
--- NOTE | 2025-04-11 21:21 | PTCARENOTE ---
Pt received from ED to [facility]. Pt oriented to room and call santana.
--- NOTE | 2025-04-11 21:49 | PHA.VAN.IN ---
Assessment
- Assessment
Renal Function: Appears similar to baseline
Maximum Temperature: 97.8
Concomitant Antimicrobials: cefazolin
Plan
- Plan
Initial / Loading Dose: vancomycin 1250 mg x 1
Monitoring: random level on 8 @ 0600
Pharmacokinetics Vancomycin I
- -
Patient Age: 74
Patient Sex: Female
Vancomycin Day #: 1
Indication: Skin And Soft Tissue
Requesting Provider: Abran Terrazas
Pertinent Antimicrobial Allergies:
levofloxacin, bactrim
Height / Weight:
Height 5 ft 2 in
Actual Weight 55.1 kg
IBW in k.1
Adjusted BW in k.1
- Vital Signs / Lab Results
Temp Pulse Resp BP Pulse Ox
97.8 F 88 16 171/85 98
04/11/25 16:27 04/11/25 16:27 04/11/25 16:27 04/11/25 20:00 04/11/25 20:00
Lab Results - Hematology
04/11/25
17:00
WBC 8.5
Lab Results - Chemistry
04/11/25
17:00
BUN 20 H
Creatinine 0.8
Estimated Creat Clear 47
Albumin 4.3
Lab Results - Urine
04/11/25
19:15
Urine Nitrite (Reflex) Negative
Leukocyte Esterase Rfl Negative
[2025-04-11] MEDS: CALAN EXTENDED RELEASE 240 MG PO (21:50)
[2025-04-11] MEDS: VANCOCIN 275 MG IV (21:50)
[2025-04-11] MEDS: PRAVACHOL 10 MG PO (21:50)
[2025-04-11 21:51] VITALS: BP 154/88; BMI 21.6
[2025-04-12] MEDS: BENADRYL 25 MG PO (02:27)
[2025-04-12] MEDS: ANCEF 10 IV ×3 (02:28→17:03)
[2025-04-12 06:00] VITALS: BMI 21.6
[2025-04-12 06:52] LABS: Blood Urea Nitrogen 16 mg/dl (7-17); Calcium 9.4 mg/dl (8.4-10.2); Carbon Dioxide 33 mmol/L (22-30); Chloride 96 mmol/L (98-107); Estimated Creatinine Clearance 63 ml/min; Glucose 101 mg/dl (70-99); Potassium 3.9 mmol/L (3.5-5.1); Sodium 132 mmol/L (135-145); eGFR > 60.00
[2025-04-12 07:22] VITALS: BP 136/65
[2025-04-12 07:40] LABS: Hematocrit 31.0 % (37.0-47.0); Hemoglobin 10.7 g/dL (12.0-16.0); Mean Corp Hgb Conc. 34.5 g/dL (33.0-37.0); Mean Corpuscular Volume 95.7 fL (81.0-99.0); Platelet Count 360 10^3/uL (130-400); Red Cell Dist. Width 16.6 % (11.5-14.5)
[2025-04-12] MEDS: VISBIOME 1 CAP PO ×2 (08:23→22:27)
[2025-04-12] MEDS: TYLENOL 1000 MG PO ×2 (08:23→22:27)
[2025-04-12] MEDS: CLARITIN 10 MG PO (08:23)
[2025-04-12] MEDS: ASPIRIN 325 MG PO (08:23)
[2025-04-12] MEDS: NON-FORMULARY ITEM 10 MG PO (08:24)
[2025-04-12] MEDS: NON-FORMULARY ITEM 20 MG PO (08:24)
--- NOTE | 2025-04-12 08:25 | PHA.VAN.FU ---
Vancomycin Assessment / Plan
- Assessment
Renal Function: SCR Decreasing
WBC's are: WNL
In the past 24 hrs, patient has been: Afebrile
Concomitant Antimicrobials: cefazolin
- Assessment - Therapeutic Drug Monitoring
Random Level: 12.1 - drawn ~8.5H after initial dose of 1250mg
- Dosing Plan
Adjust Regimen to: Vanc 1000mg Q24H - first dose now then 0600
New Regimen Predicts: AUC (480), Peak (35.6), Trough (10)
- Monitoring Plan
No level(s) ordered at this time: consider levels in next few days
- Follow Up
Pharmacy will continue to follow.
Vancomycin Follow UP
- -
Patient Age: 74
Patient Sex: Female
Vancomycin Day #: 2
Indication: Skin And Soft Tissue
Requesting Provider: Abran Terrazas
Pertinent Antimicrobial Allergies:
levofloxacin - joint pain
smx/tmp - unknown
Height / Weight:
Height 5 ft 2 in
Actual Weight 53.581 kg
Pertinent Past Medical History: R TKA (03/26)
- Vital Signs / Lab Results
Temp Pulse Resp BP Pulse Ox
98.3 F 88 20 154/88 97
04/11/25 21:51 04/11/25 21:51 04/11/25 21:51 04/11/25 21:51 04/11/25 21:51
Lab Results - Hematology
04/11/25 04/12/25
17:00 06:22
WBC 8.5 9.0
Lab Results - Chemistry
04/11/25 04/12/25
17:00 06:22
BUN 20 H 16
Creatinine 0.8 0.6
Estimated Creat Clear 47 63
Albumin 4.3
Lab Results - Urine
04/11/25
19:15
Urine Nitrite (Reflex) Negative
Leukocyte Esterase Rfl Negative
Therapeutic Drug Monitoring
Random Vancomycin 12.1 ug/ml 04/12/25 06:22
--- NOTE | 2025-04-12 09:29 | CON.ORTHO ---
Consultation
-
Date/Time Consultation Requested: 04/11/2025
Date/Time Consultation Performed: 04/12/2025
Requesting Provider: Dr. Terrazas
Performing Provider: Gema Mullins PA-C, for Dr. Eng
Reason for Consultation: Right thigh cellulitis 2 weeks s/p right TKA
Consultation - Orthopedics
History
HPI: Yenni is a 74-year-old female who presented to [facility] emergency department after experiencing worsening redness, itching, and pain now 2 weeks status post a right total knee arthroplasty. This was performed under the direction of
Dr. Natarajan on 03/26/2025. A little less than 1 week postop, she was seen in our office for a wound check and noted to have scattered erythema, believed to be a contact dermatitis. She was placed on Keflex to cover for any possible superficial or
soft tissue infection. Despite this, the rash about the knee continued to spread up the medial aspect of her thigh with a separate patch also noted laterally. She has also been working with her PCP, ADAM Lennon. She has been utilizing
topical Benadryl cream, topical steroids, topical antifungal preparations and was provided with a prescription for doxycycline in addition to the Keflex. By multiple days of these, her redness continued to spread. She was concerned for possible
cellulitis, prompting her to present to the emergency department. She denies any fevers, chills, flulike symptoms, or pain in the right knee joint itself. In regards to her progression from her right TKA, she had been doing very well in PT her
told her she was a high schedule. She states that itching is her main complaints, more more recently there has been associated pain. She feels as though her skin is extremely dry and the recent peeling caused her concern. Of note, when she did
undergo a right ankle ORIF, she had similar erythema and rash about her right lower extremity that also resulted in admission with IV antibiotics. This resolved with IV antibiotics followed by Bactrim, which she unfortunately now has an allergy to.
Past Medical History
Past Medical History: Reports Other
Additional Past Medical History:
Hypertension
Pancreatic Mass / Cyst
Chronic Vertigo / BPPV
Osteoporosis
DJD
GERD
Past Surgical History: Reports Other
Additional Past Surgical History:
R TKA (03/26/25)
Right Ankle ORIF with Retained Hardware
Partial Pancreatectomy / Splenectomy
Bladder Sling
Cystocele Repair
Social History
Tobacco: Non-smoker
Alcohol: None
Drug: None
Family History
Family History: Not pertinent
Review of systems: All systems reviewed and negative except for those mentioned in HPI.
Allergies / Home Medications
Allergy/AdvReac Type Severity Reaction Status Date / Time
hydromorphone HCl (From Allergy Nausea / Verified 04/11/25 16:19
Dilaudid) Vomiting;
Headache
ketorolac (From Toradol) Allergy Hives Verified 04/11/25 16:19
levofloxacin (From Levaquin) Allergy JOINT PAIN Verified 04/11/25 16:19
pneumococcal vaccine (From Allergy Pharmacy Verified 04/11/25 16:19
Pneumovax-23) to Review
sulfamethoxazole (From Allergy Unknown Verified 04/11/25 16:19
Bactrim)
trimethoprim (From Bactrim) Allergy Unknown Verified 04/11/25 16:19
�Medication �Instructions �Recorded
pravastatin 10 mg tablet 10 mg PO HS High Cholesterol 01/20/24
calcium 600 mg (as 2 tab PO DAILY Supplement 03/05/25
carbonate)-vitamin D3 10 mcg (400
unit) tablet (Calcium 600 + D(3))
aspirin 325 mg tablet 325 mg PO DAILY #30 tabs 03/27/25
triamterene 37.5 1 cap PO DAILY Fluid 03/27/25
mg-hydrochlorothiazide 25 mg Retention/Swelling #1 cap
capsule
verapamil 240 mg tablet,extended 240 mg PO HS Heart 03/27/25
release Disease/Condition #1 tab
Lactobac no.2-Bifidobac no.1-S. 1 cap PO BID 04/11/25
thermo 112.5 billion cell capsule
(Visbiome)
acetaminophen 500 mg tablet 1,000 mg PO BID PRN mild pain 04/11/25
(Tylenol Extra Strength)
cephalexin 500 mg capsule 500 mg PO QID 04/11/25
doxycycline hyclate 100 mg tablet 100 mg PO BID 04/11/25
fosinopril 10 mg tablet 10 mg PO DAILY 04/11/25
fosinopril 20 mg tablet 20 mg PO DAILY 04/11/25
Vital Signs / Lab Results
Temp Pulse Resp BP Pulse Ox
98.7 F 71 16 136/65 98
04/12/25 07:22 04/12/25 07:22 04/12/25 07:22 04/12/25 07:22 04/12/25 07:22
04/12/25 06:22
04/12/25 06:22
Physical examination:
General: Well-developed, well-nourished female in no acute distress at rest. AAO x 4.
HEENT: Atraumatic, normocephalic. Neck supple.
Lungs: Nonlabored breathing room air.
Heart: Regular rate and rhythm.
Right lower extremity: Knee with no effusion. Steri-Strips in place over anterior knee incision. No surrounding erythema or warmth about the knee. There is erythema extending up the medial aspect of the thigh, wrapping around posteriorly.
Superficial sloughing skin noted at this region. Erythema band about the lateral aspect of thigh also noted. In comparison to prior images in the chart, it does appear as though some of the redness has decreased in hue. Mottling of the skin noted
in this region. Range of motion 0 - 100 degrees with no pain on flexion. Calf with some swelling, minimal tenderness. N/v intact distally.
U/s RLE neg for DVT. Complex fluid collection in anterior lower thigh, c/w hematoma.
Assessment / Plan
Assessment: Erythema of right medial thigh, cellulitis versus contact dermatitis.
Plan: Unfortunately, Yenni failed to respond to multiple outpatient oral antibiotics and experienced worsening redness and progression of her rash. IV vancomycin and IV Ancef have been initiated for suspected cellulitis. She continues with
significant itching, so an order for Claritin was provided. Based on her exam, I do have suspicion that some of this may be contact dermatitis in nature as she did experience a similar response following her right ankle ORIF. She may apply topical
moisturizers as needed for her dry skin. She may continue with PT/OT to tolerance to work on her knee range of motion. At this point, I do not have any suspicion for infection of the knee joint itself. I did order an ESR and CRP to be added to
her morning lab work. Will continue to follow her while inpatient and check her response to the IV antibiotics. All questions were answered.
[2025-04-12 09:40] LABS: C-Reactive Protein < 5.00 mg/L (0.0-10.00)
--- NOTE | 2025-04-12 10:51 | W.PN.HOSP.TC ---
Addendum entered and electronically signed by Taryn Patel MD 04/12/25 16:00:
I saw and evaluated the patient independently. I reviewed the resident�s note and agree with findings and plan as documented by Dr. Gonzalez.
GENERAL: well developed, well nourished, female in no apparent distress
HEENT: NC/AT
HEART: regular rate and rhythm, +S1, +S2
LUNGS : clear to auscultation bilaterally
ABDOM: soft, nontender, nondistended, + bowel sounds
EXT: no cyanosis, clubbing-- edema right leg--knee incision with steri strips
NEUROLOGIC: grossly intact
SKIN: red scaly skin in right groin area--red and warm to touch
Possible Cellulitis to right leg--s/p right TKA 03/26/25--certainly concern for infection--but pt with peripheral eosinophilia noted and NO response to keflex, doxy--currently on IV vanco/rocephin--dermatitis rather than cellulitis must be
considered--apprec ID--starting steroids
recent right TKA--03/26/25-- US done shows complex collection in the anterior thigh, likely expected post op--cont PT/OT--apprec ortho
Hyponatremia--pt on triamterene/HCTZ--perioperatively HCTZ can cause hyponatremia--would stop for now--127 on admission--now 132--fluid restrict, follow
Vaginal itching--likely due to yeast infection from abx--agree with miconazole vaginal cream
Essential Hypertension- Hold Dyazide, monitor hypokalemia.
DVT Proph--�Full dose ASA per Ortho protocols.
Code Status-- Full
Original Note:
Today's Communication/Plan
-
Continue IV Vanco and Ancef.
Give miconazole vaginal cream.
Hold Dyazide, trend BMP.
Consult Infectious Disease.
PT consulted.
Assessment / Plan
Assessment / Plan
74 year old female with past medical history of hypertension, GERD and degenerative joint disease who presents to ED complaining of skin redness. Patient had a right total knee arthroplasty on 03/26/25 after which she was started on cefadroxil for
7 days post-op. Consequently, she started developing right thigh redness and itching after. She was seen by Ortho and started on Keflex without improvement of symptoms. PCP added doxycycline on 04/09/25 without improvement. Patient has a history of
post-op cellulitis after R ORIF in 2013, successfully treated with Vanco and Bactrim.�
Assessment/plan:
# RLE Cellulitis
# s/p right total knee arthroplasty
- Failure to improve on outpatient cephalexin and doxycycline.
- Continue IV Vanco and Ancef for now. Consult ID.�Follow for clinical improvement.
- US done today shows complex collection in the anterior thigh.
- Could consider aspiration / culture if cellulitis fails to improve.
- PT consult
- Continue full-dose ASA for DVT prophylaxis.
# Hyponatremia
- Na 127 at presentation, improved to 132 this morning 04/12/25
- Fluid restriction. Hold Dyazide.
- Trend BMP, monitor for improvement
# Vaginal itching
Patient has had similar symptoms in the past, attributed to yeast infection
- Will give miconazole vaginal cream
# Benign Hypertension - stable
- Hold Dyazide, monitor hypokalemia.
DVT Prophylaxis:� Full dose ASA per Ortho protocols.
Code Status:� Full
Anticipated Discharge: > 48 hours
Subjective/Interval History
-
Date of Service: April 12, 2025
Patient states the redness is now progressing down her leg. Patient also expresses concern for possible yeast infection as she has been having vaginal itching, is requesting a cream.
Objective Data
-
Labs:
Laboratory Results
04/12/25
06:22
WBC 9.0
Hgb 10.7 L
Hct 31.0 L
Plt Count 360
Sodium 132 L
Potassium 3.9
Chloride 96 L
Carbon Dioxide 33 H
BUN 16
Creatinine 0.6
Glucose 101 H
Calcium 9.4
Vital Signs:
Vital Signs
Temp Pulse Resp BP Pulse Ox
98.7 F 71 16 136/65 98
04/12/25 07:22 04/12/25 07:22 04/12/25 07:22 04/12/25 07:22 04/12/25 07:22
Review of Systems
-
History Source: Patient
Constitutional: Reports No Symptoms
EENT: Reports No Symptoms Reported
Respiratory: Reports No Symptoms
Cardiac: Reports No Symptoms
Abdomen/GI: Reports No Symptoms
Breast: Reports No Symptoms
Musculoskeletal: Reports No Symptoms
Skin: Reports No Symptoms
Neuro: Reports No Symptoms
Endocrine: Reports No Symptoms
Hematologic / Lymphatic: Reports No Symptoms
Physical Exam
-
General: Well Developed, Well Nourished, No Apparent Distress and Conversant
HEENT: Normocephalic, Atraumatic, Moist Mucous Membranes and Anicteric
Respiratory: Clear to Auscultation
Cardiac: Regular Rhythm and S1/S2
GI: Soft, Nontender, Nondistended and Normal Bowel Sounds
Musculoskeletal: No Clubbing, No Cyanosis, No Edema and Edema, Right Lower Extrem (RLE 1.5X compared to LLE, warm to touch)
Skin: Other (Significant erythema and induration to the medial aspect of right thigh. Incision over the right knee with Steri-Strips in place)
Neuro: AO x 3
Psych: Calm
Data Reviewed
-
Labs: Labs Reviewed by me and Discussed with Physician
Old Records: Reviewed
--- NOTE | 2025-04-12 11:40 | CON.ID ---
Consultation
-
Date/Time Consultation Requested: April 12, 2025 1111
Date/Time Consultation Performed: April 12, 2025 1140
Requesting Provider: Dr. Grace Gonzalez
Performing Provider: Dr. Hermila Wilkinson
Reason for Consultation: Recent arthroplasty of the knee, with cellulitis
Chief Complaint / Past History
Chief Complaint
Right leg itching and redness
History of Present Illness
74-year-old female history of hypertension, splenectomy, osteoarthritis, recently underwent right total knee replacement on March 18, 2025 who then developed pruritic erythema on her right knee. She reports approximately days 5 to 6 days postop,
she developed itching and redness on the side of her right knee and distal medial thigh. When the thigh ecchymosis resolved, she noted erythema. Skin very itchy. She had follow-up with her orthopedic on April 06 and she was placed on
cephalexin. However condition did not improve. She saw her PCP on April 09 who added doxycycline. Topical cortisone also recommended but she only used it once on Wednesday. The erythema continued to spread up and down her leg and therefore
she came to the ER last night. She was started on IV cefazolin and vancomycin. Peripheral ultrasound showed complex fluid collection anterior distal thigh suspect hematoma. Patient denies any fevers or chills. Able to bear weight. Able to move
her knee. She reports similar reaction when she had right ankle ORIF but not as intense as this time.
Past History
Additional Past Medical History:
Hypertension
Chronic vertigo
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
Osteoporosis
Right TKA 03/26/25
Right ankle ORIF
Cystocele repair
Bladder sling
Allergy History:
hydromorphone HCl (From Dilaudid) Allergy (Verified 04/11/25 16:19)
Nausea / Vomiting; Headache
ketorolac (From Toradol) Allergy (Verified 04/11/25 16:19)
Hives
levofloxacin (From Levaquin) Allergy (Verified 04/11/25 16:19)
JOINT PAIN
pneumococcal vaccine (From Pneumovax-23) Allergy (Verified 04/11/25 16:19)
Pharmacy to Review
sulfamethoxazole (From Bactrim) Allergy (Verified 04/11/25 16:19)
Unknown
trimethoprim (From Bactrim) Allergy (Verified 04/11/25 16:19)
Unknown
Medications Reviewed: Yes
Current Antibiotics:
Cefazolin
Vancomycin
Social History
Tobacco: Non-Smoker
Alcohol: None
Drug: None
Family History
Family History: Not Pertinent
Review of Systems
Review of Systems
General: Negative Fever, Chills or Change in Appetite
HEENT: Negative Sinus Problems or Headache
Cardiovascular: Negative Chest Pain or Dyspnea
Respiratory: Negative Dyspnea or Cough
Gasteroenterology: Negative Nausea, Vomiting or Diarrhea
Genital / Urological: Negative Dysuria or Flank Pain
Endocrine: Negative Weakness or Fatigue
Musculoskeletal: Negative Arthralgias
Skin / Hair / Nails: Rash
All systems: All other systems were reviewed and were negative
Vital Signs
Temp Pulse Resp BP Pulse Ox
98.7 F 71 16 136/65 98
04/12/25 07:22 04/12/25 07:22 04/12/25 07:22 04/12/25 07:22 04/12/25 07:22
Physical Exam
Physical Exam
Constitutional: No Acute Distress and Comfortable
Eyes: No Conjunctival Hemorrhage and Sclera Anicteric
Cardiovascular: Regular Rate and S1/S2
Pulmonary: Clear
Gastrointestinal: Soft, Non Tender, Non Distended and Normal Bowel Sounds
Genito-Urinary: Negative CVA Tenderness
Extremities: Edema (RLE 1+)
Musculoskeletal: Other (Right knee steri-strip incision dry, no effusion; ROM intact)
Skin: Rash (Erythroderma with peeling skin upper medial and posterior thigh extends down to medial knee and lower leg -. maculopapular)
Neurological: AO x 3
Lab / Diagnostic Study Results
04/12/25 06:22
04/12/25 06:22
Abs Immat Gran (auto) 0.1 10^3/uL (0-0.05) H 04/11/25 17:00
Absolute Neuts (auto) 4.8 10^3/uL (1.4-6.5) 04/11/25 17:00
Absolute Lymphs (auto) 1.8 10^3/uL (1.2-3.4) 04/11/25 17:00
Absolute Monos (auto) 0.9 10^3/uL (0.1-0.6) H 04/11/25 17:00
Absolute Basos (auto) 0.1 10^3/uL (0-0.2) 04/11/25 17:00
Immature Gran % 0.8 % (0-0.5) H 04/11/25 17:00
Neutrophils % 56.8 % (42.2-75.2) 04/11/25 17:00
Lymphocytes % 21.5 % (20.5-51.1) 04/11/25 17:00
Monocytes % 10.7 % (1.7-9.3) H 04/11/25 17:00
Eosinophils % 9.5 % (0-6) H 04/11/25 17:00
Basophils % 0.7 % (0-2) 04/11/25 17:00
ESR 2 mm/hour (0-20) 04/12/25 06:22
C-Reactive Protein < 5.00 mg/L (0.0-10.00) 04/12/25 06:22
Microbiology Results
04/11/25 Peripheral vascular US: Lymph nodes in the right groin with a outside sales representative lymph node measuring 1.5 x 0.7 x 1.3 cm. Complex collection in the right distal thigh measuring 9.1 x 2.8 x 3.8 cm favored to represent a postoperative hematoma.
Assessment / Plan
# RLE pruritic rash, onset post-op day 6 R TKA
- no response to cephalexin and doxycycline
- Suspect allergic dermatitis and not cellulitis
+ peripheral eosinophilia
- Start prednisone 40mg daily and monitor for response.
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
Hypertension
Chronic vertigo
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
Osteoporosis
Right TKA 03/26/25
Right ankle ORIF
Cystocele repair
Bladder sling
[2025-04-12] MEDS: VANCOCIN 200 IV (12:36)
[2025-04-12] MEDS: DELTASONE 40 MG PO (13:46)
--- NOTE | 2025-04-12 14:31 | CM ---
Patient seen at bedside with physician on . Patient states that she lives with her in a one story home. Patient has a walker. Patient PCP is Dr. King and she uses the [facility] for pharmacy needs. Patient has been going to
outpatient therapy in [place] and plan is for her to return to outpatient. Patient will need updated scripts. CM will continue to follow for discharge planning needs.
Plan; home with outpatient therapy vs VN
[2025-04-12 16:26] VITALS: BP 150/82
[2025-04-12] MEDS: NORMOSOL-R/PLASMALYTE-A 1000 IV (22:14)
[2025-04-12] MEDS: COLACE 100 MG PO (22:15)
[2025-04-12] MEDS: CALAN EXTENDED RELEASE 240 MG PO (22:15)
[2025-04-12 22:25] VITALS: BP 129/77
[2025-04-12] MEDS: PRAVACHOL 10 MG PO (22:27)
[2025-04-12] MEDS: MONISTAT 7 VAGINAL CREAM VAG (23:23)
[2025-04-13] MEDS: MONISTAT 7 VAGINAL CREAM 1 APPLIC VAG ×2 (00:42→21:11)
[2025-04-13] MEDS: ANCEF 10 IV ×3 (03:19→17:27)
[2025-04-13] MEDS: VANCOCIN 200 IV (05:21)
[2025-04-13 06:00] VITALS: BMI 21.7
[2025-04-13 07:29] LABS: Hematocrit 29.8 % (37.0-47.0); Hemoglobin 10.4 g/dL (12.0-16.0); Mean Corp Hgb Conc. 34.9 g/dL (33.0-37.0); Mean Corpuscular Volume 95.5 fL (81.0-99.0); Nucleated Red Blood Cells % 0 %; Platelet Count 341 10^3/uL (130-400); Red Cell Dist. Width 16.5 % (11.5-14.5)
[2025-04-13 07:34] LABS: Blood Urea Nitrogen 21 mg/dl (7-17); Calcium 9.3 mg/dl (8.4-10.2); Carbon Dioxide 30 mmol/L (22-30); Chloride 98 mmol/L (98-107); Estimated Creatinine Clearance 63 ml/min; Glucose 118 mg/dl (70-99); Magnesium 2.1 mg/dl (1.6-2.3); Potassium 3.7 mmol/L (3.5-5.1); Sodium 131 mmol/L (135-145); eGFR > 60.00
[2025-04-13 07:40] VITALS: BP 139/72
[2025-04-13] MEDS: TYLENOL 1000 MG PO ×2 (08:08→20:34)
[2025-04-13] MEDS: VISBIOME 1 CAP PO ×2 (08:08→20:34)
[2025-04-13] MEDS: ASPIRIN 325 MG PO (08:08)
[2025-04-13] MEDS: DELTASONE 40 MG PO (08:09)
[2025-04-13] MEDS: CLARITIN 10 MG PO (08:09)
[2025-04-13] MEDS: NON-FORMULARY ITEM 10 MG PO (08:11)
[2025-04-13] MEDS: NON-FORMULARY ITEM 20 MG PO (08:11)
[2025-04-13] MEDS: COLACE PO (08:17)
--- NOTE | 2025-04-13 08:29 | W.PN.UPDATE ---
Update Note
Progress Note Update
Patient was seen and examined this morning with continued improvement of her symptoms. ESR 2 and CRP less than 5. Low concern for periprosthetic joint infection. Recommend continue with current treatment plan; orthopedic surgeon will continue to
follow
--- NOTE | 2025-04-13 09:59 | PHA.VAN.FU ---
Addendum entered and electronically signed by Sena Mccann Anderson 04/13/25 10:13:
Agree with assessment and plan
Original Note:
Vancomycin Assessment / Plan
- Assessment
Renal Function: SCR Decreasing
WBC's are: WNL
In the past 24 hrs, patient has been: Afebrile
Concomitant Antimicrobials: cefazolin
- Assessment - Therapeutic Drug Monitoring
Random Level: 9.7
Question accuracy of level as was documented as drawn while dose infusing, but level on lower end. Patient on scheduled dosing - no adjustments at this time.
- Dosing Plan
Continue: 1000mg q24h
- Monitoring Plan
No level(s) ordered at this time: consider within next few days
- Follow Up
Pharmacy will continue to follow.
Vancomycin Follow UP
- -
Patient Age: 74
Patient Sex: Female
Vancomycin Day #: 3
Indication: Skin And Soft Tissue
Requesting Provider: Abran Terrazas
Pertinent Antimicrobial Allergies:
levofloxacin - joint pain
smx/tmp - unknown
Height / Weight:
Height 5 ft 2 in
Actual Weight 53.694 kg
IBW in k.1
Adjusted BW in k.1
Pertinent Past Medical History: R TKA (03/26)
- Vital Signs / Lab Results
Temp Pulse Resp BP Pulse Ox
98.0 F 67 16 139/72 97
04/13/25 07:40 04/13/25 07:40 04/13/25 07:40 04/13/25 07:40 04/13/25 07:40
Lab Results - Hematology
04/11/25 04/12/25 04/13/25
17:00 06:22 05:45
WBC 8.5 9.0 8.8
Lab Results - Chemistry
04/11/25 04/12/25 04/13/25
17:00 06:22 05:45
BUN 20 H 16 21 H
Creatinine 0.8 0.6 0.5 L
Estimated Creat Clear 47 63 63
Albumin 4.3
Therapeutic Drug Monitoring
Random Vancomycin 9.7 ug/ml 04/13/25 05:45
[2025-04-13] MEDS: NORMOSOL-R/PLASMALYTE-A IV (10:13)
--- NOTE | 2025-04-13 11:06 | W.PN.ID1 ---
Date of Service
Date of Service: April 13, 2025
Today's Communication
See below.
ID will sign off.
Assessment / Plan
# RLE pruritic rash, onset post-op day 6 R TKA
- no response to outpt cephalexin and doxycycline
- Suspect allergic dermatitis and not cellulitis
- peripheral eosinophilia and pruritic rash responding to prednisone.
- Ok to dc home on short course prednisone.
-In my opinion, no need for further abx, but pt requesting. Can transition to Augmentin 875mg po bid x 5 days.
ID will sign off
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
Hypertension
Chronic vertigo
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
Osteoporosis
Right TKA 03/26/25
Right ankle ORIF
Cystocele repair
Bladder sling
Chief Complaint
-: Other (Rash)
Subjective / Review of Systems
Itching significantly improved.
Leg swelling much improved.
Vital Signs / Physical Exam
Vital Signs
Vital Signs
Temp Pulse Resp BP Pulse Ox
98.0 F 67 16 139/72 97
04/13/25 07:40 04/13/25 07:40 04/13/25 07:40 04/13/25 07:40 04/13/25 07:40
Physical Exam
Constitutional: No Acute Distress
Pulmonary: Clear
Gastrointestinal: Soft, Non Tender, Non Distended and Normal Bowel Sounds
Extremities: Edema (RLE decreasing)
Skin: Rash (Erythroderma on posterior thigh significantly improved, medial thigh decreased, leg resolving)
Neurological: AO x 3
Objective Data
Lab Data
Lab Results
04/13/25 05:45
04/13/25 05:45
ESR 2 mm/hour (0-20) 04/12/25 06:22
Estimated Creat Clear 63 ml/min 04/13/25 05:45
Total Bilirubin 0.9 mg/dl (0.2-1.3) 04/11/25 17:00
AST 29 U/L (14-36) 04/11/25 17:00
ALT 18 U/L (0-35) 04/11/25 17:00
Alkaline Phosphatase 91 U/L (38-126) 04/11/25 17:00
C-Reactive Protein < 5.00 mg/L (0.0-10.00) 04/12/25 06:22
Most recent labs reviewed.
04/11/25 Peripheral vascular US: Lymph nodes in the right groin with a patient access representative lymph node measuring 1.5 x 0.7 x 1.3 cm. Complex collection in the right distal thigh measuring 9.1 x 2.8 x 3.8 cm favored to represent a postoperative hematoma.
--- NOTE | 2025-04-13 11:15 | W.PN.HOSP.TC ---
Addendum entered and electronically signed by Taryn Patel MD 04/13/25 20:38:
I saw and evaluated the patient independently. I reviewed the resident�s note and agree with findings and plan as documented by Dr. Gonzalez.
GENERAL: well developed, well nourished, female in no apparent distress
HEENT: NC/AT
HEART: regular rate and rhythm, +S1, +S2
LUNGS : clear to auscultation bilaterally
ABDOM: soft, nontender, nondistended, + bowel sounds
EXT: no cyanosis, clubbing-- edema right leg--knee incision with steri strips
NEUROLOGIC: grossly intact
SKIN: red scaly skin in right groin area--red and warm to touch all improved
Possible Cellulitis to right leg--s/p right TKA 03/26/25--but pt with peripheral eosinophilia noted and NO response to keflex, doxy--currently on IV vanco/rocephin--dermatitis rather than cellulitis must be considered--apprec ID--starting
steroids--pt feels leg improved with IV ABX even before steroids started--will give 1 more day of IV ABX and plan for d/c tomorrow
recent right TKA--03/26/25-- US done shows complex collection in the anterior thigh, likely expected post op--cont PT/OT--apprec ortho--low concern for joint infection
Hyponatremia--pt on triamterene/HCTZ--perioperatively HCTZ can cause hyponatremia--would stop for now--127 on admission--now 132--fluid restrict, follow--would not d/c on Dyazide at d/c
Vaginal itching--likely due to yeast infection from abx--agree with miconazole vaginal cream
Essential Hypertension- Hold Dyazide, monitor hypokalemia.
DVT Proph--�Full dose ASA per Ortho protocols.
Code Status-- Full
Original Note:
Today's Communication/Plan
-
Continue IV antibiotics.
Possible discharge tomorrow morning.
Assessment / Plan
Assessment / Plan
74 year old female with past medical history of hypertension, GERD and degenerative joint disease who presents to ED complaining of skin redness. Patient had a right total knee arthroplasty on 03/26/25 after which she was started on cefadroxil for
7 days post-op. Consequently, she started developing right thigh redness and itching after. She was seen by Ortho and started on Keflex without improvement of symptoms. PCP added doxycycline on 04/09/25 without improvement. Patient has a history of
post-op cellulitis after R ORIF in 2013, successfully treated with Vanco and Bactrim.�
Assessment/plan:
# RLE Cellulitis
# s/p right total knee arthroplasty
- Failure to improve on outpatient cephalexin and doxycycline.
- Patient's symptoms improving. ID recommends continuing short course prednisone, and switching to Augmentin 875 mg BID x 5 days. Stable for discharge per ID, signed off. Patient states she wants an extra day of IV antibiotics.
- US done today shows complex collection in the anterior thigh. Seen by Ortho- low concern for periprosthetic joint infection.
- Could consider aspiration / culture if cellulitis fails to improve.
- PT consult
- Continue full-dose ASA for DVT prophylaxis.
# Hyponatremia
- Na 127 at presentation, improved to 131 this morning 04/13/25.
- Fluid restriction. Hold Dyazide.
- Trend BMP, monitor for improvement
# Vaginal itching
Patient has had similar symptoms in the past, attributed to yeast infection
- Continue miconazole vaginal cream
# Benign Hypertension - stable
- Hold Dyazide, K 3.7.
DVT Prophylaxis:� Full dose ASA per Ortho protocols.
Code Status:� Full
Anticipated Discharge: Within 24 hours
Subjective/Interval History
-
Date of Service: April 13, 2025
Patient states she noticed decreased swelling of the right leg after getting IV antibiotics, and prior to receiving the steroids. No new complaints. Patient states she would like to stay an extra day to receive the IV antibiotics overnight because
she is concerned that she might have to come back if the Augmentin suggested by infectious disease does not work.
Objective Data
-
Labs:
Laboratory Results
04/13/25
05:45
WBC 8.8
Hgb 10.4 L
Hct 29.8 L
Plt Count 341
Sodium 131 L
Potassium 3.7
Chloride 98
Carbon Dioxide 30
BUN 21 H
Creatinine 0.5 L
Glucose 118 H
Calcium 9.3
Vital Signs:
Vital Signs
Temp Pulse Resp BP Pulse Ox
98.0 F 67 16 139/72 97
04/13/25 07:40 04/13/25 07:40 04/13/25 07:40 04/13/25 07:40 04/13/25 07:40
I&O
04/12/25 04/13/25 04/14/25
06:59 06:59 06:59
Intake Total 960 / 960
Balance 960 / 960
Review of Systems
-
History Source: Patient
Constitutional: Reports No Symptoms
EENT: Reports No Symptoms Reported and Blurry Vision
Respiratory: Reports No Symptoms
Cardiac: Reports No Symptoms
Abdomen/GI: Reports No Symptoms
Breast: Reports No Symptoms
Genitourinary: Reports No Symptoms
Musculoskeletal: Reports Edema (Right leg)
Neuro: Reports No Symptoms
Endocrine: Reports No Symptoms
Hematologic / Lymphatic: Reports No Symptoms
Allergy / Immunology: Reports No Symptoms
Physical Exam
-
General: Well Developed, Well Nourished, No Apparent Distress, Comfortable and Conversant
HEENT: Normocephalic, Atraumatic, Moist Mucous Membranes and Anicteric
Respiratory: Clear to Auscultation
Cardiac: Regular Rhythm and S1/S2
GI: Soft, Nontender, Nondistended, Normal Bowel Sounds and No Hepatosplenomegaly
Musculoskeletal: No Clubbing, No Cyanosis and Edema, Right Lower Extrem
Skin: Other (Erythema and induration to the medial aspect of right thigh. Incision over the right knee with Steri-Strips in place)
Neuro: Awake and AO x 3
Psych: Calm
Data Reviewed
-
Labs: Labs Reviewed by me and Discussed with Physician
Old Records: Reviewed
[2025-04-13] MEDS: AUGMENTIN 875 MG/125 MG 1 TABLET PO (11:43)
[2025-04-13 15:33] VITALS: BP 158/85
--- NOTE | 2025-04-13 15:59 | CM ---
Patient seen at bedside with physicians on . Patient plan is for discharge home tomorrow with no VN. Patient to resume Outpatient therapy with physical therapy and will need outpatient script from physician. IMM completed and signed form
placed on chart. Patient plan is for discharge planning needs.
Plan; home with follow up as outpatient therapy; will need outpatient script for therapy.
[2025-04-13] MEDS: CALAN EXTENDED RELEASE 240 MG PO (21:09)
[2025-04-13] MEDS: PRAVACHOL 10 MG PO (21:10)
[2025-04-13 23:55] VITALS: BP 154/88
[2025-04-14] MEDS: ANCEF 10 IV ×2 (02:26→09:04)
[2025-04-14] MEDS: FLUSH (NSS) 1 FLUSH IV (02:27)
[2025-04-14] MEDS: VANCOCIN 200 IV (05:31)
[2025-04-14] MEDS: FLUSH (NSS) 2 FLUSH IV (05:33)
[2025-04-14 06:00] VITALS: BMI 21.5
[2025-04-14 07:00] VITALS: BP 155/79
[2025-04-14] MEDS: CLARITIN 10 MG PO (07:33)
[2025-04-14] MEDS: DELTASONE 40 MG PO (07:34)
[2025-04-14] MEDS: TYLENOL 1000 MG PO (07:34)
[2025-04-14] MEDS: VISBIOME 1 CAP PO (07:34)
[2025-04-14] MEDS: NON-FORMULARY ITEM 10 MG PO (07:35)
[2025-04-14] MEDS: NON-FORMULARY ITEM 20 MG PO (07:36)
[2025-04-14] MEDS: ASPIRIN 325 MG PO (07:37)
--- NOTE | 2025-04-14 10:14 | W.DCSUMMARY ---
Addendum entered and electronically signed by Grace Gonzalez MD, Resident 04/17/25 10:32:
Patient was discharged on 04/14/2025.
Addendum entered and electronically signed by Taryn Patel MD 04/15/25 17:17:
Read, reviewed, and agree. See same day progress note for additional details. Time spent coordinating care, DC planning, review of DC plan of care with resident, transition of care, review of records in EMR, med rec, consults, notes, d/w
consultants, nursing, family, and CM = 28 minutes
Original Note:
Documented by User: Grace Gonzalez MD, Resident 04/15/25 16:26
Discharge Summary
Discharge Data
Date of Admission: 04/11/25
Date of Discharge: 04/15/25
-
Pending Results: No
Hospital Course
Discharging Physician : Dr. Taryn Patel and Dr. Edi Guzman
Disposition : Home
Primary care physician : ADAM Hernandez
Principal Discharge diagnosis : Right leg dermatitis vs cellulitis
Chronic Discharge diagnosis :
Hypertension
Gastroesophageal reflux disease
Degenerative joint disease
Hospital Course :
Patient is a 74 year old female who presented with right leg redness and itching s/p right total knee arthroplasty 03/26/25. Patient failed outpatient Cephalexin and doxycycline. Ultrasound revealed a complex collection in the anterior thigh. Patient
was started on IV vancomycin/Rocephin for possible cellulitis. Orthopedics and infectious disease was consulted. Infectious disease recommended adding prednisone for concern of possible dermatitis vs cellulitis since patient had peripheral
eosinophilia. Ortho expressed low concern for joint infection.
Patient felt she was finding relief with IV antibiotics- prior to the prednisone- and was kept for an extra day of antibiotics in the hospital. Patient had hyponatremia 127 at the time of admission, which proved to 132 by the last day of admission.
Her Dyazide was held, and recommended holding at discharge as well. Patient also expressed vaginal itching which she attributed to miconazole vaginal cream.
Patient discharged with Augmenting 875 mg BID x 5 days, prednisone taper, and loratadine 10 mg. Recommended CBC in 1 week and obtaining a dermatology referral from PCP.
Important imaging findings :
Peripheral ultrasound right lower extremity 04/11/25:
- Complex collection in the right distal thigh measuring 9.1 cm x 2.8 cm x 3.8 cm favored to represent a postoperative hematoma.
Discharge Plan
-
Patient Disposition: Home (Routine Discharge)
Discharge Diagnosis/Procedures: Possible cellulitis versus dermatitis to right leg, recent right total knee arthroplasty, hyponatremia, vaginal itching, essential hypertension
Condition: Fair
Diet: Regular and Restrict fluids to 48 oz
Activity: As tolerated
Driving Restrictions: Not until seen by your Dr
Bathing Restrictions: None
Blood Work: CBC in 1 week with PCP
CMP in 1 week with PCP
Referrals:
Navin King CRNP [Family Provider] - in less than 1 week
Additional Discharge Medication Instructions: Take amoxicillin - potassium clavulanate twice a day for 5 days
Take 4 tabs of 10 mg prednisone for 4 days on day 1 (04/15), 3 tablets on day 2 (04/16), 2 tablets on day 3 (04/17), and then 1 tablet on day 4 (04/18), then done
Prescriptions:
New
amoxicillin-pot clavulanate 875-125 mg Tablet
1 tab PO Q12 Qty: 10 0RF
miconazole nitrate 2 % Cream
1 applic vaginal HS Qty: 45 0RF
loratadine 10 mg Tablet
10 mg PO DAILY Qty: 20 0RF
prednisone 10 mg tablet
10 mg PO DIRECTED Qty: 10 0RF
Rx Instructions:
4 tab x 10 mg on day 1
3 tab x 10 mg on day 2
2 tab x 10 mg on day 3
1 tab x 10 mg on day 4
Continued
pravastatin 10 mg Tablet
10 mg PO HS
aspirin 325 mg Tablet
325 mg PO DAILY Qty: 30 0RF
Rx Instructions:
Take daily x4 weeks for blood clot prevention
verapamil 240 MG tablet extended release
240 mg PO HS Qty: 1 0RF
Visbiome 112.5 billion cell Capsule
1 cap PO BID
acetaminophen [Tylenol Extra Strength] 500 mg tablet
1,000 mg PO BID PRN (Reason: mild pain)
Rx Instructions:
DO NOT exceed >4000 mg daily.
fosinopril 20 mg Tablet
20 mg PO DAILY Qty: 0 0RF
Rx Instructions:
takes w/ 10mg to total 30mg daily
Held
calcium carbonate-vitamin D3 [Calcium 600 + D(3)] 600 mg-10 mcg (400 unit) Tablet
2 tab PO DAILY
Hold Instructions: Resume on 04/21/25. Pending CMP with PCP in 1 week
Discontinued
triamterene-hydrochlorothiazid 37.5 MG/25 MG capsule
1 cap PO DAILY Qty: 1 0RF
cephalexin 500 mg Capsule
500 mg PO QID
Rx Instructions:
for 7 days starting 04/06/25
doxycycline hyclate 100 mg Tablet
100 mg PO BID
Rx Instructions:
for 10 days starting 04/09/25
fosinopril 10 mg Tablet
10 mg PO DAILY
Rx Instructions:
takes w/ 20mg to total 30mg daily
Discharge Orders:
Discharge Patient (As Directed); Ordered 04/14/25
Ordered By: Edi Guzman
Discharge Date and Time
Discharge Date/Time: 04/14/25 10:22
Print Language: [place]

Documented by User: Edi Guzman MD, Resident 04/15/25 16:28
Discharge Summary
Discharge Data
Date of Admission: 04/11/25
Date of Discharge: 04/15/25
Discharge Plan
-
Patient Disposition: Home (Routine Discharge)
Discharge Diagnosis/Procedures: Possible cellulitis versus dermatitis to right leg, recent right total knee arthroplasty, hyponatremia, vaginal itching, essential hypertension
Condition: Fair
Diet: Regular and Restrict fluids to 48 oz
Activity: As tolerated
Driving Restrictions: Not until seen by your Dr
Bathing Restrictions: None
Blood Work: CBC in 1 week with PCP
CMP in 1 week with PCP
Referrals:
Navin King CRNP [Family Provider] - in less than 1 week
Additional Discharge Medication Instructions: Take amoxicillin - potassium clavulanate twice a day for 5 days
Take 4 tabs of 10 mg prednisone for 4 days on day 1 (04/15), 3 tablets on day 2 (04/16), 2 tablets on day 3 (04/17), and then 1 tablet on day 4 (04/18), then done
Prescriptions:
New
amoxicillin-pot clavulanate 875-125 mg Tablet
1 tab PO Q12 Qty: 10 0RF
miconazole nitrate 2 % Cream
1 applic vaginal HS Qty: 45 0RF
loratadine 10 mg Tablet
10 mg PO DAILY Qty: 20 0RF
prednisone 10 mg tablet
10 mg PO DIRECTED Qty: 10 0RF
Rx Instructions:
4 tab x 10 mg on day 1
3 tab x 10 mg on day 2
2 tab x 10 mg on day 3
1 tab x 10 mg on day 4
Continued
pravastatin 10 mg Tablet
10 mg PO HS
aspirin 325 mg Tablet
325 mg PO DAILY Qty: 30 0RF
Rx Instructions:
Take daily x4 weeks for blood clot prevention
verapamil 240 MG tablet extended release
240 mg PO HS Qty: 1 0RF
Visbiome 112.5 billion cell Capsule
1 cap PO BID
acetaminophen [Tylenol Extra Strength] 500 mg tablet
1,000 mg PO BID PRN (Reason: mild pain)
Rx Instructions:
DO NOT exceed >4000 mg daily.
fosinopril 20 mg Tablet
20 mg PO DAILY Qty: 0 0RF
Rx Instructions:
takes w/ 10mg to total 30mg daily
Held
calcium carbonate-vitamin D3 [Calcium 600 + D(3)] 600 mg-10 mcg (400 unit) Tablet
2 tab PO DAILY
Hold Instructions: Resume on 04/21/25. Pending CMP with PCP in 1 week
Discontinued
triamterene-hydrochlorothiazid 37.5 MG/25 MG capsule
1 cap PO DAILY Qty: 1 0RF
cephalexin 500 mg Capsule
500 mg PO QID
Rx Instructions:
for 7 days starting 04/06/25
doxycycline hyclate 100 mg Tablet
100 mg PO BID
Rx Instructions:
for 10 days starting 04/09/25
fosinopril 10 mg Tablet
10 mg PO DAILY
Rx Instructions:
takes w/ 20mg to total 30mg daily
Discharge Orders:
Discharge Patient (As Directed); Ordered 04/14/25
Ordered By: Edi Guzman
Discharge Date and Time
Discharge Date/Time: 04/14/25 10:22
Print Language: [place]
--- NOTE | 2025-04-14 14:15 | W.PN.HOSP.TC ---
Addendum entered and electronically signed by Taryn Patel MD 04/14/25 14:30:
I saw and evaluated the patient independently. I reviewed the resident�s note and agree with findings and plan as documented by Dr. Guzman.
GENERAL: well developed, well nourished, female in no apparent distress
HEENT: NC/AT
HEART: regular rate and rhythm, +S1, +S2
LUNGS : clear to auscultation bilaterally
ABDOM: soft, nontender, nondistended, + bowel sounds
EXT: no cyanosis, clubbing-- edema right leg--knee incision with steri strips
NEUROLOGIC: grossly intact
SKIN: red scaly skin in right groin area--red and warm to touch all improved
dermatitis with Possible superimposed Cellulitis to right leg--s/p right TKA 03/26/25-- peripheral eosinophilia noted and NO response to keflex, doxy--currently on IV vanco/rocephin--apprec ID--much improved with steroids--pt feels leg improved with
IV ABX even before steroids started--finished 1 more day of IV ABX--changed to oral--OK for D/C
recent right TKA--03/26/25-- US done shows complex collection in the anterior thigh, likely expected post op--cont PT/OT--apprec ortho--low concern for joint infection
Hyponatremia--pt on triamterene/HCTZ--perioperatively HCTZ can cause hyponatremia--would stop for now--127 on admission--now 132--fluid restrict, follow--would not d/c on Dyazide at d/c
Vaginal itching--likely due to yeast infection from abx--agree with miconazole vaginal cream
Essential Hypertension- Hold Dyazide, monitor hypokalemia.
DVT Proph--�Full dose ASA per Ortho protocols.
Code Status-- Full
Original Note:
Today's Communication/Plan
-
- patient is discharged today with follow up instructions
Assessment / Plan
Assessment / Plan
74 year old female with past medical history of hypertension, GERD and degenerative joint disease who presents to ED complaining of skin redness. Patient had a right total knee arthroplasty on 03/26/25 after which she was started on cefadroxil for
7 days post-op. Consequently, she started developing right thigh redness and itching after. She was seen by Ortho and started on Keflex without improvement of symptoms. PCP added doxycycline on 04/09/25 without improvement. Patient has a history of
post-op cellulitis after R ORIF in 2013, successfully treated with Vanco and Bactrim.�
Assessment/plan:
# RLE Cellulitis vs dermatitis.
# s/p right total knee arthroplasty:
- Failure to improve on outpatient cephalexin and doxycycline.
- US done today shows complex collection in the anterior thigh. Seen by Ortho- low concern for periprosthetic joint infection.
- Could consider aspiration / culture if cellulitis fails to improve.
- PT consult
- Continue full-dose ASA for DVT prophylaxis.
- Patient's symptoms improving. ID recommends continuing short course prednisone so discharged patient on a prednisone taper, and discharged on Augmentin 875 mg BID x 5 days. Stable for discharge per ID, signed off. They suspect dermatitis and not
cellulitis due to peripheral eosinophilia and rash responding to steroids. Added in loratadine 10 mg on discharge to reduce itching.
- CBC in 1 week with PCP.
- Recommended patient get a dermatology referral from PCP.
# Hyponatremia:
- Na 127 at presentation, improved to 131 this morning 04/13/25.
- Discontinue Dyazide on discharge.
- CMP with PCP in 1 week
# Vaginal itching:
Patient has had similar symptoms in the past, attributed to yeast infection
- Continue miconazole vaginal cream on discharge
# Benign Hypertension - stable
- on discharge blood pressure is 155/79, asymptomatic
- Continue home dose of verapamil and fosinopril on discharge
DVT Prophylaxis:� Full dose ASA per Ortho protocols.
Code Status:� Full
Anticipated Discharge: Today
Subjective/Interval History
-
Date of Service: April 14, 2025
No acute medical complaints.
No overnight events.
Objective Data
-
Labs:
Laboratory Results
04/14/25 04/14/25
07:41 07:51
WBC Cancelled Cancelled
Hgb Cancelled Cancelled
Hct Cancelled Cancelled
Plt Count Cancelled Cancelled
Sodium Cancelled Cancelled
Potassium Cancelled Cancelled
Chloride Cancelled Cancelled
Carbon Dioxide Cancelled Cancelled
BUN Cancelled Cancelled
Creatinine Cancelled Cancelled
Glucose Cancelled Cancelled
Calcium Cancelled Cancelled
Total Bilirubin Cancelled Cancelled
AST Cancelled Cancelled
ALT Cancelled Cancelled
Alkaline Phosphatase Cancelled Cancelled
Vital Signs:
Vital Signs
Temp Pulse Resp BP Pulse Ox
98.0 F 77 20 155/79 97
04/14/25 07:00 04/14/25 07:00 04/14/25 07:00 04/14/25 07:00 04/14/25 07:00
I&O
04/13/25 04/14/25 04/15/25
06:59 06:59 06:59
Intake Total 960 / 960 720 / 720
Balance 960 / 960 720 / 720
Review of Systems
-
History Source: Patient
Constitutional: Reports No Symptoms
EENT: Reports No Symptoms Reported and Blurry Vision
Respiratory: Reports No Symptoms
Cardiac: Reports No Symptoms
Abdomen/GI: Reports No Symptoms
Breast: Reports No Symptoms
Genitourinary: Reports No Symptoms
Musculoskeletal: Reports Edema (Right leg)
Neuro: Reports No Symptoms
Endocrine: Reports No Symptoms
Hematologic / Lymphatic: Reports No Symptoms
Allergy / Immunology: Reports No Symptoms
Physical Exam
-
General: Well Developed, Well Nourished, No Apparent Distress, Comfortable and Conversant
HEENT: Normocephalic, Atraumatic, Moist Mucous Membranes and Anicteric
Respiratory: Clear to Auscultation
Cardiac: Regular Rhythm and S1/S2
GI: Soft, Nontender, Nondistended, Normal Bowel Sounds and No Hepatosplenomegaly
Musculoskeletal: No Clubbing, No Cyanosis and Edema, Right Lower Extrem
Skin: Other (Erythema and induration to the medial aspect of right thigh. Incision over the right knee with Steri-Strips in place)
Neuro: Awake and AO x 3
Psych: Calm
Data Reviewed
-
Labs: Labs Reviewed by me and Discussed with Physician
== END 2025-04-14 10:22 | disposition home or self-care (01) | DRG 603 ==
LOC: 4 WEST ACU 20:50
PROVIDERS: Physician Assistant; ADMITTING PHYSICIAN Hospitalist; ATTENDING PHYSICIAN Internal Medicine; CONSULT PHYSICIAN Student in an Organized Health Care Education/Training Program; EMERGENCY PHYSICIAN Emergency Medicine; OTHER PHYSICIAN Internal Medicine Infectious Disease
DX: L03.115 Cellulitis of right lower limb (principal); E87.1 Hypo-osmolality and hyponatremia; L23.9 Allergic contact dermatitis, unspecified cause; E78.00 Pure hypercholesterolemia, unspecified; I10 Essential (primary) hypertension; R73.03 Prediabetes; B37.31 Acute candidiasis of vulva and vagina; K21.9 Gastro-esophageal reflux disease without esophagitis; M19.90 Unspecified osteoarthritis, unspecified site; M81.0 Age-related osteoporosis without current pathological fracture; K86.9 Disease of pancreas, unspecified; D72.19 Other eosinophilia; H81.10 Benign paroxysmal vertigo, unspecified ear; Z96.651 Presence of right artificial knee joint; Z88.1 Allergy status to other antibiotic agents; Z90.411 Acquired partial absence of pancreas; Z90.81 Acquired absence of spleen; Z88.5 Allergy status to narcotic agent; Z88.2 Allergy status to sulfonamides; Z88.7 Allergy status to serum and vaccine
CPT/HCPCS: 80048; 80053; 80202; 81003; 83735; 83930; 83935; 84300; 85025; 85027; 85652; 86140; 93971; 96374; 96375; 97162; 99285

== ENCOUNTER → 2025-05-30 14:56 | Outpatient (REF) | payer MEDICARE, OTHER, SELFPAY | LOC: MRI 3T 14:56 | PROVIDERS: ATTENDING PHYSICIAN Nurse Practitioner Acute Care | DX: D49.0 Neoplasm of unspecified behavior of digestive system (principal) | CPT/HCPCS: 74183; A9575 ==